=== PATIENT | male | born 1990 | race Caucasian/White ===

== ENCOUNTER 2017-08-23 20:05 | Emergency (ER) | payer BC ==
[2017-08-23 20:25] VITALS: O2SAT 99
[2017-08-23] MEDS ORDERED: Sodium Chloride 0.9% 1,000 ML IV STA (21:12)
[2017-08-23 21:43] LABS: BASO # 0.1 K/uL (0.0-0.2); BASO % 0.8 % (0.0-2.0); EOS % 0.3 % (0.0-4.0); HEMOGLOBIN 14.4 g/dL (12.0-18.0); LYMPH % 19.8 % (20.0-40.0); MEAN CORPUSCULAR HEMOGLOBIN 27.7 pg (27.0-31.0); MEAN CORPUSCULAR HGB CONC 33.7 g/dL (33.0-37.0); MEAN PLATELET VOLUME 8.1 fl (7.2-11.7); MONO % 10.1 % (0.0-10.0); NRBC % 0.1 % (0.0-0.0); RBC 5.19 Mil/uL (4.40-5.90); RED CELL DISTRIBUTION WIDTH 13.6 % (11.5-14.5); WHITE BLOOD COUNT 10.1 K/uL (4.8-10.8)
--- NOTE | 2017-08-23 21:45 | ED PDOC ---
"HPI: Abdomen Time Seen by Provider: 08/23/17 20:38 Chief Complaint (Nursing): Abdominal Pain History Per: Patient Additional Complaint(s): Pt. states for the pas 24 hours he's had nausea, 1 episode of non-bloody vomiting, and 1 episode of non-bloody diarrhea. Reports also having constant RUQ pain with loss of appetite. Further states that he recently returned from a vacation in the [place]. States his girlfriend also has the same symptoms but without abdominal pain. Denies fever, hematemesis, melena, hematochezia, BRBPR, previous abd surgeries, antipyretic use. Past Medical History Reviewed: Historical Data, Nursing Documentation, Vital Signs Vital Signs: Last Vital Signs Temp 98.6 F 08/23/17 20:22 Pulse 95 H 08/23/17 20:22 Resp 18 08/23/17 20:22 BP 160/100 H 08/23/17 20:22 Pulse Ox 99 08/24/17 00:59 - Medical History PMH: HTN - Surgical History Surgical History: No Surg Hx - Family History Family History: States: No Known Family Hx - Home Medications Home Medications: Ambulatory Orders Medication Instructions Recorded Ciprofloxacin [Cipro] 500 mg PO BID #10 tab 08/24/17 Dicyclomine [Bentyl] 20 mg PO Q8 PRN #15 tab 08/24/17 Ondansetron ODT [Zofran ODT] 4 mg PO TID #21 odt 08/24/17 - Allergies Allergies/Adverse Reactions: Allergies Allergy/AdvReac Type Severity Reaction Status Date / Time No Known Allergies Allergy Verified 08/23/17 20:21 Review of Systems ROS Statement: Except As Marked, All Systems Reviewed And Found Negative Gastrointestinal: Positive for: Nausea, Vomiting, Abdominal Pain, Diarrhea Physical Exam - Physical Exam Appears: Positive for: Well, Non-toxic, No Acute Distress Skin: Positive for: Normal Color, Warm. Negative for: Rash Eye Exam: Positive for: Normal appearance. Negative for: Scleral icterus Cardiovascular/Chest: Positive for: Regular Rate, Rhythm Respiratory: Positive for: Normal Breath Sounds. Negative for: Respiratory Distress Gastrointestinal/Abdominal: Positive for: Normal Exam, Bowel Sounds, Soft, Other (negative Hernandez's sign). Negative for: Tenderness, Distended Back: Positive for: Normal Inspection. Negative for: L CVA Tenderness, R CVA Tenderness Neurologic/Psych: Positive for: Alert, Oriented - Laboratory Results Result Diagrams: 08/23/17 21:31 08/23/17 21:31 - ECG O2 Sat by Pulse Oximetry: 99 - Progress ED Course And Treament: Labs, abd US, IV NS bolus x 1, zofran 4mg ODT, pepcid 40mg IV ordered. 2338 On re-evaluation, pt. reports having R flank pain. CT abd/pelvis w/o contrast ordered. Offered pain meds but refused. 0053 CT abd/pelvis w/o contrast: 1. Nonobstructing LEFT renal calculus. Case d/w Dr. Durham who recommends Cipro Rx. Pt. informed of results and agrees with care. Reports feeling much better. Medical Decision Making Medical Decision Making: [facility] Final Radiology Report Call: [phone] assistance Online chat: [email or web address] Patient Name: ALEXEY BUCIO (Age): 1990 26 Gender: M Date of Exam: 08/23/2017 Referring Physician: Ervin Renteria # of Images: [phone] Ordered As: CT ABD PELVIS W O PO OR IV CONT Page 1 of 2 EXAM: CT Abdomen and Pelvis Without Intravenous Contrast CLINICAL HISTORY: 26 years old, male; Pain; Abdominal pain; Flank; Right; Additional info: R flank pain, hematuria TECHNIQUE: Axial computed tomography images of the abdomen and pelvis without intravenous contrast. All CT scans at this facility use one or more dose reduction techniques, viz.: automated exposure control; ma/kV adjustment per patient size (including targeted exams where dose is matched to indication; i.e. head); or iterative reconstruction technique. Coronal and sagittal reformatted images were created and reviewed. COMPARISON: US - ABDOMEN COMPLETE 2017-08-23 22:04 FINDINGS: Limitations: Lack of intravenous contrast. Motion artifact - mild. Lung bases: No acute findings. ABDOMEN: Liver: Fatty infiltration. Gallbladder and bile ducts: No calcified stones. No ductal dilation. Pancreas: Unremarkable. No ductal dilation. Spleen: No splenomegaly. Adrenals: No mass. Kidneys and ureters: Small calculus within LEFT kidney. No hydronephrosis. Stomach and bowel: No definite mural thickening. No obstruction. PELVIS: Appendix: Normal caliber. No inflammation. Bladder: Unremarkable. No stones. Reproductive: Unremarkable as visualized. ABDOMEN and PELVIS: Intraperitoneal space: No significant fluid collection. No free air. Bones/joints: Mild degenerative changes of hip joints. Probable bone island. No acute fracture. Soft tissues: Tiny umbilical hernia containing fat. Tiny LEFT inguinal hernia containing fat. Vasculature: Unremarkable. No aneurysm. ALEXEY BUCIO | Final Radiology Report CONFIDENTIALITY STATEMENT This report is intended only for use by the referring physician, and only in accordance with law. If you received this in error, call [phone]. Page 2 of 2 Lymph nodes: No pathologically enlarged lymph nodes. IMPRESSION: 1. Nonobstructing renal calculus. 2. Incidental/non-acute findings are described above. Thank you for allowing us to participate in the care of your patient. Dictated and Authenticated by: Dago Muñoz MD 08/24/2017 12:25 AM Eastern Time ([place] & [place]) Disposition - Clinical Impression Clinical Impression: Gastroenteritis - Patient ED Disposition Is Patient to be Admitted: No - Disposition Referrals: [facility] [Outside] Disposition: Routine/Home Disposition Time: 00:57 Condition: IMPROVED Additional Instructions: Follow up with PMD for further evaluation. Return to ED immediately if symptoms worsen. Prescriptions: Ciprofloxacin [Cipro] 500 mg PO BID #10 tab Dicyclomine [Bentyl] 20 mg PO Q8 PRN #15 tab PRN Reason: abdominal pain Ondansetron ODT [Zofran ODT] 4 mg PO TID #21 odt Instructions: Diarrhea and Traveler's Diarrhea, Adult (DC) Forms: [employer] (Korean)"
[2017-08-23 21:51] LABS: URINE BACTERIA RARE (<OCC); URINE BILIRUBIN NEGATIVE (NEGATIVE); URINE BLOOD SMALL (NEGATIVE); URINE CLARITY SLIGHTY-CLOUDY (Clear); URINE COLOR YELLOW (YELLOW); URINE GLUCOSE (UA) NEG (Normal); URINE LEUKOCYTE ESTERASE NEG Leu/uL (Negative); URINE PROTEIN 100 mg/dL (NEGATIVE); URINE UROBILINOGEN 0.2-1.0 mg/dL (0.2-1.0)
[2017-08-23 21:52] LABS: ALB/GLOB RATIO 1.4 (1.0-2.1); ALBUMIN 4.8 g/dL (3.5-5.0); ALT/SGPT 47 U/L (21-72); AST/SGOT 32 U/L (17-59); BLOOD UREA NITROGEN 17 mg/dl (9-20); CALCIUM 9.5 mg/dL (8.4-10.2); GFR AFRICAN-AMERICAN > 60; GFR NON-AFRICAN AMERICAN > 60; LIPASE 41 U/L (23-300)
--- NOTE | 2017-08-24 00:26 | CT ---
EXAM: CT Abdomen and Pelvis Without Intravenous Contrast CLINICAL HISTORY: 26 years old, male; Pain; Abdominal pain; Flank; Right; Additional info: R flank pain, hematuria TECHNIQUE: Axial computed tomography images of the abdomen and pelvis without intravenous contrast. All CT scans at this facility use one or more dose reduction techniques, viz.: automated exposure control; ma/kV adjustment per patient size (including targeted exams where dose is matched to indication; i.e. head); or iterative reconstruction technique. Coronal and sagittal reformatted images were created and reviewed. COMPARISON: US - ABDOMEN COMPLETE 2017-08-23 22:04 FINDINGS: Limitations: Lack of intravenous contrast. Motion artifact - mild. Lung bases: No acute findings. ABDOMEN: Liver: Fatty infiltration. Gallbladder and bile ducts: No calcified stones. No ductal dilation. Pancreas: Unremarkable. No ductal dilation. Spleen: No splenomegaly. Adrenals: No mass. Kidneys and ureters: Small calculus within LEFT kidney. No hydronephrosis. Stomach and bowel: No definite mural thickening. No obstruction. PELVIS: Appendix: Normal caliber. No inflammation. Bladder: Unremarkable. No stones. Reproductive: Unremarkable as visualized. ABDOMEN and PELVIS: Intraperitoneal space: No significant fluid collection. No free air. Bones/joints: Mild degenerative changes of hip joints. Probable bone island. No acute fracture. Soft tissues: Tiny umbilical hernia containing fat. Tiny LEFT inguinal hernia containing fat. Vasculature: Unremarkable. No aneurysm. Lymph nodes: No pathologically enlarged lymph nodes. IMPRESSION: 1. Nonobstructing renal calculus. 2. Incidental/non-acute findings are described above.
[2017-08-24 02:44] VITALS: BP 140/82; PULSE 90; RESP 20; TEMP 98.4
--- NOTE | 2017-08-24 09:02 | US ---
HISTORY: RUQ pain, N/V/D COMPARISON: None. TECHNIQUE: Sonographic evaluation of the abdomen. FINDINGS: LIVER: Enlarged, measuring 17.9 cm. Increased echogenicity of the liver parenchyma. No mass. No intrahepatic bile duct dilatation. GALLBLADDER: Unremarkable. No gallstones. COMMON BILE DUCT: Measures 4 mm. No stones. No dilatation. PANCREAS: Unremarkable as visualized. No mass. No ductal dilatation. RIGHT KIDNEY: Measures 11.0 x 6.0 x 5.3cm. Normal echogenicity. No calculus, mass, or hydronephrosis. LEFT KIDNEY: Measures 10.9 x 6.5 x 5.7cm. Normal echogenicity. No calculus, mass, or hydronephrosis. SPLEEN: Normal in size and contour. No mass. AORTA: No aneurysmal dilatation. IVC: Unremarkable. OTHER FINDINGS: None. IMPRESSION: Hepatomegaly with steatosis.
== END 2017-08-24 00:40 | disposition home or self-care (01) ==
LOC: H.ER 20:05
DX: K52.9 Noninfective gastroenteritis and colitis, unspecified (principal); N20.0 Calculus of kidney; I10 Essential (primary) hypertension
CPT/HCPCS: 74176; 76700; 80053; 81003; 83690; 85025; 87040; 96374; 99283; J7040